=== PATIENT | female | born 1980 | race Caucasian/White ===

== ENCOUNTER 2017-06-16 15:14 | Emergency (ER) | payer MEDICAID, OTHER ==
[~2017-06-16] VITALS: Wt 74.0 kg
[~2017-06-16 15:14] MED LIST: CYCL-319 PO; IBUP-1542 PO; PREN1TAB49; PREN1TAB49 PO
[2017-06-16] MEDS ORDERED: KETOROLAC 30 MG INJ IM STA (17:31)
[2017-06-16 18:12] LABS: BASOPHILS % 0.1 % (0.0-2.0); EOSINOPHILS % 0.3 % (0.0-7.0); HEMOGLOBIN 12.9 g/dl (12.0-16.0); LYMPHOCYTES # 2.2 10^3/ul (0.8-2.9); LYMPHOCYTES % 22.6 % (15.0-51.0); MEAN CORPUSCULAR HEMOGLOBIN 28.7 pg (29.0-33.0); MEAN CORPUSCULAR HGB CONC 33.9 g/dl (32.0-37.0); MEAN CORPUSCULAR VOLUME 84.4 fl (82.0-101.0); MEAN PLATELET VOLUME 9.8 fl (7.4-10.4); MONOCYTE # 0.6 10^3/ul (0.3-0.9); MONOCYTES % 6.2 % (0.0-11.0); NEUTROPHIL # 6.9 10^3/ul (1.6-7.5); NEUTROPHILS % 70.3 % (39.0-77.0); PLATELET COUNT 214 10^3/UL (140-415); RED CELL DISTRIBUTION WIDTH 13.2 % (11.5-14.5); WHITE BLOOD COUNT 9.8 10^3/ul (4.8-10.8)
[2017-06-16 18:19] LABS: ADD UMIC YES; UR ASCORBIC ACID NEGATIVE (NEGATIVE); UR BILIRUBIN (Dip) NEGATIVE (NEGATIVE); UR BLOOD (Dip) 1+ mg/dL (NEGATIVE); UR CLARITY SLIGHTLY CLOUDY (CLEAR); UR COLOR YELLOW (YELLOW); UR GLUCOSE (Dip) NEGATIVE (NEGATIVE); UR KETONES (Dip) NEGATIVE (NEGATIVE); UR LEUKOCYTE ESTERASE (Dip) NEGATIVE Leu/ul (NEGATIVE); UR MUCUS FEW /HPF (NONE SEEN); UR NITRITE (Dip) NEGATIVE (NEGATIVE); UR RBC 1 /HPF (0-5); UR SPECIFIC GRAVITY (Dip) 1.021 (1.003-1.030); UR SQUAMOUS EPITHELIAL CELL FEW /HPF (FEW); UR TOTAL PROTEIN (Dip) NEGATIVE (NEGATIVE); UR UROBILINOGEN (Dip) NEGATIVE (NEGATIVE)
[2017-06-16 18:30] LABS: ALBUMIN 4.2 g/dl (3.3-4.9); ALBUMIN/GLOBULIN RATIO 1.4; BILIRUBIN,INDIRECT 0.1 mg/dl (0-1.1); BILIRUBIN,TOTAL 0.1 mg/dl (0.2-1.3); CALCIUM 9.3 mg/dl (8.4-10.2); CREATININE 0.92 mg/dl (0.44-1.00); POTASSIUM 4.4 mmol/L (3.5-5.1); TOTAL PROTEIN 7.2 g/dl (6.1-8.1)
[2017-06-16] MEDS ORDERED: ACETAMINOPHEN 325 MG TAB PO ONE (18:30)
--- NOTE | 2017-06-16 18:38 | RADRPT ---
PROCEDURE: US Pelvis. CLINICAL INDICATION: Pain TECHNIQUE: Multiple sonographic images of the pelvis were obtained utilizing a transabdominal and endovaginal technique. The images were reviewed on a PACS workstation. COMPARISON: None. FINDINGS: The uterus is normal in size and demonstrates a normal appearance of the myometrium. The endometria l stripe is heterogeneous in appearance and has the thickness of 19 mm. No intrauterine gestation is noted. The ovaries are not visualized. There is a small to moderate amount of free fluid in the pelvis. RPTAT: AA IMPRESSION: No intrauterine gestation visualized. Ovaries not visualized. Small to moderate amount of free fluid in the posterior cul-de-sac. Differential diagnosis includes early , missed or ectopic . Follow-up ultrasound and HCG levels is recommended. .Enrico Sullivan MD, Date Time Electronically viewed and signed by .Enrico Sullivan MD, on 06/16/2017 18:37 .S/
[2017-06-16] MEDS ORDERED: ACET325T33 PO (18:57)
[2017-06-16] MEDS ORDERED: PREN1COM PO (19:05)
--- NOTE | 2017-06-16 19:49 | ERD ---
ER Documentation Chief Complaint Date/Time DATE: 06/16/17 TIME: 19:44 Chief Complaint LOWER ABD PAIN SINCE YESTERDAY HPI Patient is a 36-year-old female presenting to the emergency department with complaints of bilateral suprapubic pain which is worse with urination which has been ongoing intermittently since yesterday. She does report a burning on urination. She has had urinary tract infections in the past. She states her last menstrual cycle was 05-15-2017. She states there is possibility that she is . Symptoms radiate to the back. She denies fevers, chills, vomiting , diarrhea, or other symptoms at this time. ROS All systems reviewed and are negative except as per history of present illness. Medications Home Meds Active Scripts Prenat Vit Comb.10/Iron/FA/Dha (Vitafol-Ob+Dha Combo Pack) 1 Each Combo..pkg, 1 EACH PO DAILY, #30 Prov:ANGELICA SOTOMAYOR PA-C 06/16/17 Acetaminophen* (Tylenol*) 325 Mg Tablet, 2 TAB PO Q6 Y for PAIN AND OR ELEVATED TEMP, #20 TAB Prov:ANGELICA SOTOMAYOR PA-C 06/16/17 Cyclobenzaprine Hcl* (Cyclobenzaprine Hcl*) 10 Mg Tablet, 10 MG PO TID, #30 TAB Prov:LISSETT REYNOLDS PA-C 07/19/16 Ibuprofen* (Motrin*) 600 Mg Tab, 600 MG PO Q6H Y for PAIN AND OR ELEVATED TEMP, #30 TAB Prov:LISSETT REYNOLDS PA-C 07/19/16 Reported Medications Vits W-Ca,Fe,Fa(<1MG) () 1 Tab Tablet, 1 01/21/12 Vits W-Ca,Fe,Fa(<1MG) () 1 Tab Tablet, 1 TAB PO DAILY 06/20/11 Allergies Allergies: Coded Allergies: No Known Drug Allergies (Verified Allergy, Mild, 01/21/12) PMhx/Soc History of Surgery: No Anesthesia Reaction: No Hx Neurological Disorder: No Hx Respiratory Disorders: No Hx Cardiac Disorders: No Hx Psychiatric Problems: No Hx Miscellaneous Medical Probl: No Hx Alcohol Use: No Hx Substance Use: No Hx Tobacco Use: No Physical Exam Vitals Vital Signs Date Time Temp Pulse Resp B/P Pulse Ox O2 Delivery O2 Flow Rate FiO2 06/16/17 15:16 98.0 84 18 144/96 99 Physical Exam Const: Nontoxic, well-appearing female in no acute distress. Head: Atraumatic Eyes: Normal Conjunctiva ENT: Normal External Ears, Nose and Mouth. Neck: Full range of motion..~ No meningismus. Resp: Clear to auscultation bilaterally Cardio: Regular rate and rhythm, no murmurs Abd: Soft, non tender, non distended. Normal bowel sounds. There is mild suprapubic tenderness palpation bilaterally. Skin: No petechiae or rashes Back: No midline or flank tenderness and no CVA tenderness noted. Ext: No cyanosis, or edema Neur: Awake and alert Psych: Normal Mood and Affect Result Diagram: 06/16/17175406/16/171754 Results 24 hrs Laboratory Tests Test 06/16/17 17:55 White Blood Count 9.810^3/ul Red Blood Count 4.5010^6/ul Hemoglobin 12.9g/dl Hematocrit 38.0% Mean Corpuscular Volume 84.4fl Mean Corpuscular Hemoglobin 28.7pg Mean Corpuscular Hemoglobin Concent 33.9g/dl Red Cell Distribution Width 13.2% Platelet Count 57636^3/UL Mean Platelet Volume 9.8fl Neutrophils % 70.3% Lymphocytes % 22.6% Monocytes % 6.2% Eosinophils % 0.3% Basophils % 0.1% Nucleated Red Blood Cells % 0.0/100WBC Neutrophils # 6.910^3/ul Lymphocytes # 2.210^3/ul Monocytes # 0.610^3/ul Eosinophils # 0.010^3/ul Basophils # 0.010^3/ul Nucleated Red Blood Cells # 0.010^3/ul Urine Color YELLOW Urine Clarity SLIGHTLY CLOUDY Urine pH 5.0 Urine Specific [place] 1.021 Urine Ketones NEGATIVEmg/dL Urine Nitrite NEGATIVEmg/dL Urine Bilirubin NEGATIVEmg/dL Urine Urobilinogen NEGATIVEmg/dL Urine Leukocyte Esterase NEGATIVELeu/ul Urine Microscopic RBC 1/HPF Urine Microscopic WBC 1/HPF Urine Squamous Epithelial Cells FEW/HPF Urine Mucus FEW/HPF Urine Hemoglobin 1+mg/dL Urine Glucose NEGATIVEmg/dL Urine Total Protein NEGATIVEmg/dl Sodium Level 136mmol/L Potassium Level 4.4mmol/L Chloride Level 102mmol/L Carbon Dioxide Level 25mmol/L Anion Gap 13 Blood Urea Nitrogen 17mg/dl Creatinine 0.92mg/dl Glucose Level 84mg/dl Calcium Level 9.3mg/dl Total Bilirubin 0.1mg/dl Direct Bilirubin 0.00mg/dl Indirect Bilirubin 0.1mg/dl Aspartate Amino Transf (AST/SGOT) 22IU/L Alanine Aminotransferase (ALT/SGPT) 30IU/L Alkaline Phosphatase 69IU/L Total Protein 7.2g/dl Albumin 4.2g/dl Globulin 3.00g/dl Albumin/Globulin Ratio 1.40 Beta HCG, Quantitative 313.9mIU/ml Current Medications Medications (Trade) Dose Ordered Sig/Angela Route PRN Reason Start Time Stop Time Status Last Admin Dose Admin Ketorolac Tromethamine (Toradol) 30 mg ONCE STAT IM 06/16/17 17:31 06/16/17 17:33 DC Acetaminophen (Tylenol Tab) 650 mg ONCE ONCE PO 06/16/17 18:30 06/16/17 18:31 DC 06/16/17 18:38 Procedures/MDM 36-year-old female presents to the emergency department for bilateral suprapubic pain. A UA and urine were ordered initially and urine positive, given her symptoms of suprapubic pain I ordered a workup to rule out obstetrical emergencies. CBC showed no signs of leukocytosis or anemia. Chemistry was negative for acute findings. Beta-hCG was 313, which put her outside the discriminatory zone for possible ectopic . Urinalysis is not concerning for proteinuria or signs of infection. P.o. Tylenol relieved her symptoms in the department. Given her very low beta hCG and no sign of intrauterine gestation, the patient is likely very early on in her . Since her pain did stabilize in the department and she was feeling comfortable to go home, she was discharged with instructions to follow- up closely with her [employer] physician and primary care physician. She was hemodynamically stable prior to discharge. I have low suspicion for ectopic , placenta previa, placenta abruptio, sepsis, acute abdomen, or other emergent conditions. The patient agreed with the discharge plan a diagnosis and her questions and concerns were addressed. She was given copies of her laboratory and imaging results. Must return immediately for any new or worsening symptoms. PROCEDURE: US Pelvis. CLINICAL INDICATION: Pain TECHNIQUE: Multiple sonographic images of the pelvis were obtained utilizing a transabdominal and endovaginal technique. The images were reviewed on a PACS workstation. COMPARISON: None. FINDINGS: The uterus is normal in size and demonstrates a normal appearance of the myometrium. The endometrial stripe is heterogeneous in appearance and has the thickness of 19 mm. No intrauterine gestation is noted. The ovaries are not visualized. There is a small to moderate amount of free fluid in the pelvis. RPTAT: AA IMPRESSION: No intrauterine gestation visualized. Ovaries not visualized. Small to moderate amount of free fluid in the posterior cul-de-sac. Differential diagnosis includes early , missed or ectopic . Follow-up ultrasound and HCG levels is recommended. .Enrico Sullivan MD, MD Date Time Electronically viewed and signed by .Enrico Sullivan MD, MD on 06/16/2017 18: 37 Departure Diagnosis: Primary Impression: Pelvic pain affecting in first trimester, antepartum Condition: Fair Patient Instructions: Pelvic Pain In : Unclear (2-3 Trimester) Additional Instructions: No mas mejor en 2-3 liang, regresar. Mas peor en 24 horas, regresear rapidamente. Ir a doctor primario in 5-7 liang. Usar instrucciones cuando lanie medicamento. ANGELICA SOTOMAYOR PA-C Jun 16, 2017 19:49
== END 2017-06-16 19:09 | disposition home or self-care (01) ==
LOC: FTE 15:14
DX: O26.891 Other specified pregnancy related conditions, first trimester (principal); R10.2 Pelvic and perineal pain
CPT/HCPCS: 76801; 76817; 80053; 81001; 84702; 85025; 86900; 86901; 87086; Z7502; Z7610

== ENCOUNTER 2017-06-21 22:22 | Emergency (ER) | payer MEDICAID ==
[~2017-06-21] VITALS: Ht 160 cm; Wt 74.5 kg
[~2017-06-21 22:22] MED LIST changes: +ACET325T33 PO; +PREN1COM PO
[2017-06-21 22:25] VITALS: Ht 160 cm; Wt 74.5 kg
[2017-06-22] MEDS ORDERED: ACETAMINOPHEN 325 MG TAB PO STA (00:17)
--- NOTE | 2017-06-22 00:17 | ERD ---
ER Documentation Chief Complaint Date/Time DATE: 06/22/17 TIME: 00:15 Chief Complaint vag bleed and pain on urination; does not wear pads HPI This 36-year-old , 5 week female with pelvic pain and small amount of bleeding with void. Patient reports that she is wearing a foster-pad has saturated a pad about every 3 hours, denies clots, denies back pain but denies nausea or vomiting. ROS All systems reviewed and are negative except as per history of present illness. Medications Home Meds Active Scripts Prenat Vit Comb.10/Iron/FA/Dha (Vitafol-Ob+Dha Combo Pack) 1 Each Combo..pkg, 1 EACH PO DAILY, #30 Prov:ANGELICA SOTOMAYOR PA-C 06/16/17 Acetaminophen* (Tylenol*) 325 Mg Tablet, 2 TAB PO Q6 Y for PAIN AND OR ELEVATED TEMP, #20 TAB Prov:ANGELICA SOTOMAYOR PA-C 06/16/17 Cyclobenzaprine Hcl* (Cyclobenzaprine Hcl*) 10 Mg Tablet, 10 MG PO TID, #30 TAB Prov:LISSETT REYNOLDS PA-C 07/19/16 Ibuprofen* (Motrin*) 600 Mg Tab, 600 MG PO Q6H Y for PAIN AND OR ELEVATED TEMP, #30 TAB Prov:LISSETT REYNOLDS PA-C 07/19/16 Reported Medications Vits W-Ca,Fe,Fa(<1MG) () 1 Tab Tablet, 1 01/21/12 Vits W-Ca,Fe,Fa(<1MG) () 1 Tab Tablet, 1 TAB PO DAILY 06/20/11 Allergies Allergies: Coded Allergies: No Known Drug Allergies (Verified Allergy, Mild, 01/21/12) PMhx/Soc Medical and Surgical Hx: pt denies Medical Hx, pt denies Surgical Hx History of Surgery: No Anesthesia Reaction: No Hx Neurological Disorder: No Hx Respiratory Disorders: No Hx Cardiac Disorders: No Hx Psychiatric Problems: No Hx Miscellaneous Medical Probl: No Hx Alcohol Use: No Hx Substance Use: No Hx Tobacco Use: No Smoking Status: Never smoker Physical Exam Vitals Vital Signs Date Time Temp Pulse Resp B/P Pulse Ox O2 Delivery O2 Flow Rate FiO2 06/21/17 22:25 81 20 141/71 100 Vitals stable, triage notes reviewed Physical Exam Const: Well-nourished, well-appearing, well-hydrated 36-year-old female obvious discomfort no acute distress Head: Eyes: Normal Conjunctiva PERRLA, EOMI ENT: Normal External Ears, Nose and Mouth. Neck: Resp: Clear to auscultation bilaterally no rales wheezes or rhonchi Cardio: S1-S2, no S3-S4 regular rate and rhythm, no murmurs Abd: Soft, pelvic tenderness, no CVA tenderness Skin: Back: No midline or flank tenderness Ext: Neur: Awake and alert Psych: Normal Mood and Affect Result Diagram: 06/22/17 0015 Results 24 hrs Laboratory Tests Test 06/22/17 00:15 06/22/17 00:33 White Blood Count 7.510^3/ul Red Blood Count 4.0810^6/ul Hemoglobin 11.8g/dl Hematocrit 34.0% Mean Corpuscular Volume 83.3fl Mean Corpuscular Hemoglobin 28.9pg Mean Corpuscular Hemoglobin Concent 34.7g/dl Red Cell Distribution Width 13.4% Platelet Count 72486^3/UL Mean Platelet Volume 10.0fl Neutrophils % 63.6% Lymphocytes % 26.4% Monocytes % 8.9% Eosinophils % 0.5% Basophils % 0.3% Nucleated Red Blood Cells % 0.0/100WBC Neutrophils # 4.810^3/ul Lymphocytes # 2.010^3/ul Monocytes # 0.710^3/ul Eosinophils # 0.010^3/ul Basophils # 0.010^3/ul Nucleated Red Blood Cells # 0.010^3/ul Beta HCG, Quantitative 858.3mIU/ml Urine Color YELLOW Urine Clarity SLIGHTLY CLOUDY Urine pH 5.0 Urine Specific [place] 1.024 Urine Ketones NEGATIVEmg/dL Urine Nitrite NEGATIVEmg/dL Urine Bilirubin NEGATIVEmg/dL Urine Urobilinogen NEGATIVEmg/dL Urine Leukocyte Esterase NEGATIVELeu/ul Urine Microscopic RBC 10/HPF Urine Microscopic WBC 2/HPF Urine Squamous Epithelial Cells FEW/HPF Urine Hemoglobin 2+mg/dL Urine Glucose NEGATIVEmg/dL Urine Total Protein NEGATIVEmg/dl Current Medications Medications (Trade) Dose Ordered Sig/Angela Route PRN Reason Start Time Stop Time Status Last Admin Dose Admin Acetaminophen (Tylenol Tab) 650 mg ONCE STAT PO 06/22/17 00:17 06/22/17 00:19 DC 06/22/17 00:29 Interpretation text CBC shows no evidence of hemorrhage or infection Beta hCG quantitative 858.3mIU/ml Urine analysis negative for evidence of infection no leukocytosis, or nitrates. Procedures/MDM PROCEDURE: US OB. CLINICAL INDICATION: Vaginal bleeding , pain. Clinical estimate gestational age is 5 weeks 3 days with estimated date of delivery 02/19/2018 TECHNIQUE: Transabdominal and transvaginal views of the pelvis are available for review. COMPARISON: 06/16/2017 FINDINGS: No intrauterine is seen. There is a small fluid collection in the endometrium in the fundus with mean diameter equals 0.29 cm. If this represents a gestational sac this corresponds to 4 weeks 6 days gestational age with estimated date of delivery 02/23/2018. No yolk sac or pole is seen in the fluid collection which could be secondary to early gestational age. Nabothian cysts in the cervix. The right ovary is unremarkable measures 3.6 x 1.8 x 2.5 cm. Color flow and duplex Doppler ultrasound demonstrates normal arterial and venous flow in the right ovary. The left ovary is not seen. No adnexal mass is seen. Small amount of free fluid is seen in the right adnexal region and cul-de- sac. IMPRESSION: No intrauterine is seen. There is a small fluid collection in the endometrium in the fundus with mean diameter equals 0.29 cm. If this represents a gestational sac this corresponds to 4 weeks 6 days gestational age. No yolk sac or pole is seen in the fluid collection which could be secondary to early gestational age. No ectopic is seen. Differential diagnosis includes early intrauterine , spontaneous and ectopic . Correlation with serial quantitative beta HCGs and follow-up ultrasound is recommended. Small amount of free fluid in cul-de-sac. Electronically viewed and signed by .Zackery Byrnes MD, MD on 06/22/2017 01:49 This 36-year-old female presents to emergency department today for evaluation of abdominal pain and vaginal bleeding, patient is 5 weeks using peripads and saturating every 8 hours. Patient denies back pain, nausea, or vomiting. Patient denies passing clots, pain is controllable with Tylenol. Emergency room course includes laboratory testing with hemoglobin decreased positive for anemia, WBCs without evidence of infection, beta hCG quantitative 858.3mIU/ml analysis negative for leukocytosis, traits suggestive of infection, OB ultrasound: As read by radiologist impression no intrauterine seen. There is small fluid collection in the endometrium in the fundus with a mean diameter equaling 0.29 cm. If this represents a gestational sacs this corresponds with 4 weeks 6 days gestational age no yolk sac or pole is seen in fluid collection which could be secondary to early gestational age. No ectopic is seen. Torrential diagnosis includes early intrauterine , spontaneous , and ectopic correlation with serial quantitative beta hCGs and follow-up ultrasound recommended. No free fluid seen in cul-de-sac. Plan to discharge patient home with [place], return to emergency department in 48 hours for repeat testing as outlined above, return to emergency room sooner for increased pain, vaginal bleeding bleeding Patient is stable with no new complaints during ER course, clinically there is no current evidence to suggest Vitas, urinary tract infection or any other emergent condition appearing to require further evaluation or hospitalization. I feel the patient is stable for discharge at this time. I have discussed results, examination findings, the treatment plan with the patient and family present prior to discharge. Indications for emergent reevaluation, side effects of medication were also discussed. All questions were answered. Patient verbalizes understanding and agrees with plan of care. Departure Diagnosis: Primary Impression: Vaginal bleeding in patient at less than 20 weeks gestation Condition: Good Patient Instructions: Bleeding During Early Additional Instructions: Thank you for for coming to [facility] for your care today. Please ask your nurse or provider if you have questions about your care today and do not leave until all your questions have been answered. Please use any medications given as directed and follow-up with your doctor (or the doctor you were referred to) in the next 2-3 days. If you do not have a primary care doctor you may follow up at the [facility] (listed below). You may also use motrin and tylenol as needed for fever and/or pain unless instructed otherwise by your provider or nurse. Indications for more urgent follow-up have been discussed, but you may return to the Emergency Department at ANY time for any worrisome or worsening symptoms. If you have abdominal pain, please know that no test or exam you received is perfect and you should follow up within 8 hours for continued pain. If you had any imaging studies today, such as an X-Ray or CT Scan, these studies will be reviewed later by a radiologist. You will be called if there are important findings that were not identified today, so make sure the contact information you provided at registration is correct. If you received any narcotic pain control medicine today, such as Vicodin, Morphine or Dilaudid, your coordination and judgment may be affected for a number of hours. Please do not drive or operate heavy machinery, and you may want someone to assist you at home. If you were given a prescription for narcotic medication, be aware that it is very addictive- use sparingly and only if necessary. SMITA ROCK Jun 22, 2017 00:17
[2017-06-22 00:33] LABS: BASOPHILS % 0.3 % (0.0-2.0); EOSINOPHILS % 0.5 % (0.0-7.0); HEMOGLOBIN 11.8 g/dl (12.0-16.0); LYMPHOCYTES % 26.4 % (15.0-51.0); MEAN CORPUSCULAR HEMOGLOBIN 28.9 pg (29.0-33.0); MEAN CORPUSCULAR HGB CONC 34.7 g/dl (32.0-37.0); MEAN CORPUSCULAR VOLUME 83.3 fl (82.0-101.0); MONOCYTE # 0.7 10^3/ul (0.3-0.9); MONOCYTES % 8.9 % (0.0-11.0); NEUTROPHIL # 4.8 10^3/ul (1.6-7.5); NEUTROPHILS % 63.6 % (39.0-77.0); PLATELET COUNT 194 10^3/UL (140-415); RED BLOOD COUNT 4.08 10^6/ul (4.20-5.40); RED CELL DISTRIBUTION WIDTH 13.4 % (11.5-14.5); WHITE BLOOD COUNT 7.5 10^3/ul (4.8-10.8)
[2017-06-22 00:55] LABS: ADD UMIC YES; UR ASCORBIC ACID 40 mg/dL (NEGATIVE); UR BILIRUBIN (Dip) NEGATIVE (NEGATIVE); UR BLOOD (Dip) 2+ mg/dL (NEGATIVE); UR CLARITY SLIGHTLY CLOUDY (CLEAR); UR COLOR YELLOW (YELLOW); UR GLUCOSE (Dip) NEGATIVE (NEGATIVE); UR KETONES (Dip) NEGATIVE (NEGATIVE); UR LEUKOCYTE ESTERASE (Dip) NEGATIVE Leu/ul (NEGATIVE); UR NITRITE (Dip) NEGATIVE (NEGATIVE); UR RBC 10 /HPF (0-5); UR SPECIFIC GRAVITY (Dip) 1.024 (1.003-1.030); UR SQUAMOUS EPITHELIAL CELL FEW /HPF (FEW); UR TOTAL PROTEIN (Dip) NEGATIVE (NEGATIVE); UR UROBILINOGEN (Dip) NEGATIVE (NEGATIVE)
--- NOTE | 2017-06-22 01:49 | RADRPT ---
PROCEDURE: US OB. CLINICAL INDICATION: Vaginal bleeding , pain. Clinical estimate gestational age is 5 weeks 3 days with estimated date of delivery 02/19/2018 TECHNIQUE: Transabdominal and transvaginal views of the pelvis are available for review. COMPARISON: 06/16/2017 FINDINGS: No intrauterine is seen. There is a small fluid collection in the endometrium in the fundu s with mean diameter equals 0.29 cm. If this represents a gestational sac this corresponds to 4 week s 6 days gestational age with estimated date of delivery 02/23/2018. No yolk sac or pole is se en in the fluid collection which could be secondary to early gestational age. Nabothian cysts in the cervix. The right ovary is unremarkable measures 3.6 x 1.8 x 2.5 cm. Color flow and duplex Doppler ultrasound demonstrates normal arterial and venous flow in the right ovary. The left ovary is not se en. No adnexal mass is seen. Small amount of free fluid is seen in the right adnexal region and cul- de-sac. IMPRESSION: No intrauterine is seen. There is a small fluid collection in the endometrium in the fundu s with mean diameter equals 0.29 cm. If this represents a gestational sac this corresponds to 4 week s 6 days gestational age. No yolk sac or pole is seen in the fluid collection which could be s econdary to early gestational age. No ectopic is seen. Differential diagnosis includes ear ly intrauterine , spontaneous and ectopic . Correlation with serial quant itative beta HCGs and follow-up ultrasound is recommended. Small amount of free fluid in cul-de-sac. RPTAT: HJES .Zackery Byrnes MD, Date Time Electronically viewed and signed by .Zackery Byrnes MD, on 06/22/2017 01:49 .S/
[2017-06-22] MEDS ORDERED: HYDR-906 PO (03:21)
== END 2017-06-22 03:33 | disposition home or self-care (01) ==
LOC: FTE 22:22
DX: O20.9 Hemorrhage in early pregnancy, unspecified (principal); Z3A.01 Less than 8 weeks gestation of pregnancy
CPT/HCPCS: 76801; 76817; 81001; 84702; 85025; Z7502; Z7610

== ENCOUNTER 2017-07-25 18:38 | Emergency (ER) | payer MEDICAID, OTHER ==
[~2017-07-25] VITALS: Ht 162.6 cm; Wt 72.6 kg
[~2017-07-25 18:38] MED LIST changes: +HYDR-906 PO
[2017-07-25 18:43] VITALS: Ht 162.6 cm; Wt 72.6 kg
--- NOTE | 2017-07-25 20:20 | RADRPT ---
AMENDMENT: 07/26/2017 2:59:34 PM Marci Gonzalez M.d Findings were discussed with Dr. Finch with the OB Gyne service by Dr. Marci Gonzalez on July 26 at 02:50 p.m. She agrees that the patient should be called back for repeat evaluation and repeat ultrasound with the sliding test this afternoon or evening. AMENDMENT: 07/26/2017 2:46:11 PM Marci Gonzalez M.d The 2.8 cm heterogeneous avascular mass in the right adnexa is favored to represent a tubal ectopic although an exophytic hemorrhagic corpus luteum cannot be absolutely excluded. Repeat ultr asound with the sliding test is recommended. Alternatively, differentiation of an ectopic from a corpus luteum could be made with MRI. The ectopic may have accounting for the essentially negative beta HCG. Short interval follow-up is recommended in 24-48 hours. This addendum was discussed with Dr Garcia in the ER by Dr. Marci Gonzalez July 26, 2017 at 02:3 5 p.m. A call was also placed to the OB Gyne provider, Dr. Linda Finch. However, she could not be r eached at this time. PROCEDURE: FIRST TRIMESTER OBSTETRICAL ULTRASOUND: CLINICAL INDICATION: 36 years of age, female. Vaginal bleeding and right lower quadrant pain . TECHNIQUE: Real-time sonographic images of the pelvis were obtained transabdominally and transvagina lly utilizing fuentes scale, color, and Doppler imaging. COMPARISON: Pelvic ultrasound June 22, 2017 FINDINGS: LMP May 15, 2017 EGA by dates: 10 weeks 1 day BOB by dates: February 19, 2018 Beta HCG < 2.4 (negative) (was 858 June 22, 2017) Uterus: Anteverted . Myometrium is normal. Gestational sac: Not visualized Endometrium: 0.8 cm without hyperemia. Cervix: Closed. Right ovary: Size: 3.2 x 1.8 x 2.5 cm. (Vol 7.5 mL) Appearance: Right ovary is normal morphology and demonstrates normal arterial flow. There is a 2.8 x 2.8 cm heterogeneous mass in the right adnexa adjacent to the ovary without internal color flow vince t was likely present on prior exam. Left ovary: Size: 3.3 x 1.4 x 2.1 cm. (Vol 4.9 mL) Appearance: Normal morphology. No masses. There is a 1.2 cm paraovarian cyst. Arterial flow is pres ent. Other: No significant free pelvic fluid. IMPRESSION: 1. Negative for an intrauterine . 2. 2.8 cm heterogeneous mass in the right adnexa adjacent to the right ovary without internal colo r flow was likely also present on prior exam. Differential diagnosis includes, but is not limited to , a tubal ectopic or an exophytic hemorrhagic corpus luteum cyst. Gynecology consultation is advised. The patient's beta HCG is negative. If one opts for medical or conservative therapy, fol low-up ultrasound in 4-6 weeks is recommended to evaluate for resolution. Findings were discussed with provider, Tali Bradshaw by Dr. Marci Gonzalez on July 25, 2017 at 08: 10 p.m.. RPTAT: HCTS Physician Maliha Date Time Electronically viewed and signed by Jamir Gonzalez Physician on 07/26/2017 15:00 CS/
[2017-07-25] MEDS ORDERED: IBUP-1542 PO (21:27)
--- NOTE | 2017-07-25 21:43 | ERD ---
ER Documentation Chief Complaint Chief Complaint 10 wks , vag bleeding lmp 05/15/17 HPI This is a 36-year-old female that presents to the ER for vaginal bleeding. Patient states that her last normal menstrual period was on May 15, 2017. Patient was seen in the ER on June 21, 2017 secondary to vaginal bleeding, at this time her quantitative hCG was 858. Patient states that she bled for 5 days, and then bleeding resolved. Patient began to bleed again 2 days ago and states that bleeding is heavy. She is also complaining of right sided lower pelvic pain, which she has had for months, she states it is worse whenever she gets her menstrual period. A0. Denies any urinary frequency or dysuria. She denies any flank pain. She denies any fevers or chills. This has been different from her other pregnancies, as she has not had any symptoms such as nausea, vomiting, cravings or breast tenderness. ROS 12 point review of systems was done, all negative except per HPI. Medications Home Meds Active Scripts Ibuprofen* (Motrin*) 600 Mg Tab, 600 MG PO Q6, #30 TAB Prov:TALI SALVADOR 07/25/17 Hydrocodone/Acetaminophen ([place] 5-325 Tablet) 1 Each Tablet, 1 TAB PO Q6H Y for PAIN, #7 TAB Prov:SMITA ROCK 06/22/17 Prenat Vit Comb.10/Iron/FA/Dha (Vitafol-Ob+Dha Combo Pack) 1 Each Combo..pkg, 1 EACH PO DAILY, #30 Prov:ANGELICA SOTOMAYOR PA-C 06/16/17 Acetaminophen* (Tylenol*) 325 Mg Tablet, 2 TAB PO Q6 Y for PAIN AND OR ELEVATED TEMP, #20 TAB Prov:ANGELICA SOTOMAYOR PA-C 06/16/17 Cyclobenzaprine Hcl* (Cyclobenzaprine Hcl*) 10 Mg Tablet, 10 MG PO TID, #30 TAB Prov:LISSETT REYNOLDS PA-C 07/19/16 Ibuprofen* (Motrin*) 600 Mg Tab, 600 MG PO Q6H Y for PAIN AND OR ELEVATED TEMP, #30 TAB Prov:LISSETT REYNOLDS PA-C 07/19/16 Reported Medications Vits W-Ca,Fe,Fa(<1MG) () 1 Tab Tablet, 1 01/21/12 Vits W-Ca,Fe,Fa(<1MG) () 1 Tab Tablet, 1 TAB PO DAILY 06/20/11 Allergies Allergies: Coded Allergies: No Known Drug Allergies (Verified Allergy, Mild, 07/25/17) PMhx/Soc History of Surgery: No Anesthesia Reaction: No Hx Neurological Disorder: No Hx Respiratory Disorders: No Hx Cardiac Disorders: No Hx Psychiatric Problems: No Hx Miscellaneous Medical Probl: No Hx Alcohol Use: No Hx Substance Use: No Hx Tobacco Use: No Physical Exam Vitals Vital Signs Date Time Temp Pulse Resp B/P Pulse Ox O2 Delivery O2 Flow Rate FiO2 07/25/17 18:43 98.2 75 20 138/89 100 Physical Exam GENERAL: The patient is well developed and appropriate for usual state of health , in no apparent distress. HEENT: Atraumatic CHEST: Clear to auscultation bilaterally. There are no rales, wheezes or rhonchi. HEART: Regular rate and rhythm. No murmurs, clicks, rubs or gallops. ABDOMEN: Soft, nontender and nondistended. Good bowel sounds. No rebound or guarding. No gross peritonitis. No gross organomegaly or masses. No Freeman sign or McBurney point tenderness. Due to palpation in the right pelvic area. BACK: No midline or flank tenderness. NEURO: Alert and oriented. SKIN: There is no apparent rash or petechia. The skin is warm and dry. Result Diagram: 07/25/171918 Results 24 hrs Laboratory Tests Test 07/25/17 19:19 White Blood Count 6.110^3/ul Red Blood Count 4.6710^6/ul Hemoglobin 13.5g/dl Hematocrit 38.8% Mean Corpuscular Volume 83.1fl Mean Corpuscular Hemoglobin 28.9pg Mean Corpuscular Hemoglobin Concent 34.8g/dl Red Cell Distribution Width 13.0% Platelet Count 89668^3/UL Mean Platelet Volume 10.0fl Neutrophils % 59.4% Lymphocytes % 29.4% Monocytes % 9.7% Eosinophils % 1.1% Basophils % 0.2% Nucleated Red Blood Cells % 0.0/100WBC Neutrophils # 3.610^3/ul Lymphocytes # 1.810^3/ul Monocytes # 0.610^3/ul Eosinophils # 0.110^3/ul Basophils # 0.010^3/ul Nucleated Red Blood Cells # 0.010^3/ul Beta HCG, Quantitative < 2.4mIU/ml [place] [id number] Radiology Main Line: [phone] DIAGNOSTIC IMAGING REPORT Patient: ITZEL MARINA : 1980 Age: 36 Sex: F MR #: [id number] DOS: 07/25/17 1907 Ordering MD: TALI SALVADOR PA-C Location: [facility] Room/Bed: PROCEDURE: FIRST TRIMESTER OBSTETRICAL ULTRASOUND: CLINICAL INDICATION: 36 years of age, female. Vaginal bleeding and right lower quadrant pain . TECHNIQUE: Real-time sonographic images of the pelvis were obtained transabdominally and transvaginally utilizing fuentes scale, color, and Doppler imaging. COMPARISON: Pelvic ultrasound June 22, 2017 FINDINGS: LMP May 15, 2017 EGA by dates: 10 weeks 1 day BOB by dates: February 19, 2018 Beta HCG < 2.4 (negative) (was 858 June 22, 2017) Uterus: Anteverted . Myometrium is normal. Gestational sac: Not visualized Endometrium: 0.8 cm without hyperemia. Cervix: Closed. Right ovary: Size: 3.2 x 1.8 x 2.5 cm. (Vol 7.5 mL) Appearance: Right ovary is normal morphology and demonstrates normal arterial flow. There is a 2.8 x 2.8 cm heterogeneous mass in the right adnexa adjacent to the ovary without internal color flow that was likely present on prior exam. Left ovary: Size: 3.3 x 1.4 x 2.1 cm. (Vol 4.9 mL) Appearance: Normal morphology. No masses. There is a 1.2 cm paraovarian cyst. Arterial flow is present. Other: No significant free pelvic fluid. IMPRESSION: 1. Negative for an intrauterine . 2. 2.8 cm heterogeneous mass in the right adnexa adjacent to the right ovary without internal color flow was likely also present on prior exam. Differential diagnosis includes, but is not limited to, a tubal ectopic or an exophytic hemorrhagic corpus luteum cyst. Gynecology consultation is advised. The patient's beta HCG is negative. If one opts for medical or conservative therapy, follow-up ultrasound in 4-6 weeks is recommended to evaluate for resolution. Findings were discussed with provider, Tali Salvador by Dr. Marci Gonzalez on July 25, 2017 at 08:10 p.m.. RPTAT: HCTS Jamir Gonzalez Physician Date Time Electronically viewed and signed by Jamir Gonzalez, Physician on 07/25/2017 21: 10 CS/ CC: TALI SALVADOR Procedures/MDM Differential diagnosis: Threatened , missed , incomplete , ectopic , molar , UTI, pyelonephritis. This is a 36 -year-old female presents to the ER with vaginal bleeding. Ultrasound was taken , and concern for ectopic was brought up however patient's quantitative hCG is less than 2.4 and she has a negative urine test. There was no evidence of intrauterine on ultrasound. She was taken for further ultrasound testing, and after retesting final impression of ultrasound was that there was no intrauterine , and a mass in the right ovary measuring about 2 cm. I discussed this case with labor quality control industrial engineer Dr. Finch, patient's quantitative hCG is negative for and there is no evidence of intrauterine at this time. Suspicion for ectopic is low. My suspicion is that patient was in late May, and missed the .Patient bled for 5 days and bleeding resolved, this was likely a miscarriage. Bleeding which started two days ago is likely her regular menstrual cycle. It is difficult to confirm this as she did not have any followup care, ULTZ, quantitative hCG in between. She is likely presenting with right lower pelvic pain secondary to mass that was found. Suspicion for ovarian torsion is low. Per Dr. Finch patient is stable for outpatient follow-up. She is to follow-up with her primary care doctor within 1 -2 days or return to ER sooner if symptoms worsen. My medical decision making shared with the patient she understands and agrees with plan. Departure Diagnosis: Primary Impression: Vaginal bleeding Condition: Stable Patient Instructions: Missed Miscarriage Referrals: ISAURO ESPINO MD (PCP) Additional Instructions: Llame al doctor MAANA y ania amber MIKE PARA DENTRO DE 1-2 ZAZUETA.Dgale a la secretaria que nosotros le instruimos hacer esta mike.Avise o llame si driscoll condicin se empeora antes de la mike. Regresa aqui si peor o no mejor. TALI SALVADOR Jul 25, 2017 21:43
--- NOTE | 2017-07-26 14:02 | EN ---
Date/Time of Note Date/Time of Note DATE: 07/26/17 TIME: 14:01 ER Progress Note I received a phone call from the radiologist regarding this patient's ultrasound imaging. They are concerned that this may be a tubular, ectopic despite negative hCG. She is asking for contact information for the labor asked to consult on the case, Dr. Finch. The patient's information was given to the charge nurse to call the patient to return emergently to the ER for reevaluation. REX DURANT MD Jul 26, 2017 14:02
== END 2017-07-25 21:40 | disposition home or self-care (01) ==
LOC: FTE 18:38
DX: O20.9 Hemorrhage in early pregnancy, unspecified (principal); R10.2 Pelvic and perineal pain; Z3A.10 10 weeks gestation of pregnancy
CPT/HCPCS: 36415; 76801; 76817; 84702; 85025; 86900; 86901; Z7502

== ENCOUNTER 2017-07-26 16:45 | Inpatient (IN) | payer OTHER ==
[~2017-07-26] VITALS: Ht 162.6 cm; Wt 71.8 kg
[2017-07-26] MEDS ORDERED: SOD CHLORIDE 0.9% 1,000 ML IV ONE (20:00)
--- NOTE | 2017-07-26 20:56 | RADRPT ---
PROCEDURE: OB Ultrasound. CLINICAL INDICATION: Positive test. Vaginal bleeding. TECHNIQUE: Ultrasound of the pelvis was performed with transabdominal and transvaginal sonography in the axial and sagittal planes. COMPARISON: Pelvic ultrasound dated 07/25/2017. FINDINGS: There is no intrauterine gestational sac. The uterus measures 10.0 x 4.7 x 6.5 cm. There is no uteri ne mass. Endometrial thickness is 8.5 mm. The right ovary measures 3.0 x 2.0 x 2.7 cm. There is a mass which is probably arising from the righ t ovary measuring 2.8 x 2.3 x 2.5 cm. The mass remains associated with the ovary during application of pressure and release of pressure (sliding test). The left ovary appears normal measuring 3.2 x 1.3 x 2.2 cm. Color Doppler and pulsed Doppler sonography demonstrate normal flow to the ovaries. There is no other pelvic mass or free fluid. IMPRESSION: 1. No intrauterine gestational sac. If the patient has a positive test, ectopic gestation cannot be excluded. 2. Mass probably arising from the right ovary measuring 2.8 x 2.3 x 2.5 cm. This appears similar to the prior study dated 07/25/2017. Follow-up ultrasound advised. 3. Otherwise unremarkable study. RPTAT: QQ .Jomar Rich MD, Date Time Electronically viewed and signed by .Jomar Rich MD, on 07/26/2017 20:55 .R/
--- NOTE | 2017-07-26 21:51 | ERD ---
ER Documentation Chief Complaint Chief Complaint Rule out ectopic HPI The patient is a 36-year-old female who presents to the Emergency Department for evaluation of vaginal bleeding, and to rule out ectopic . The patient reports that her last menstrual period was 05/15/2017. She was then seen in the Emergency Department on 06/21/2017 secondary to vaginal bleeding in , at which time her beta hCG quantitative was 858. The patient notes that approximately 3 days ago she be began to experience heavy vaginal bleeding. She notes that she is using approximately 6 pads per day due to the heavy bleeding. The patient also notes associated right pelvic pain, which she states that she has been experiencing intermittently for some time. She denies any urinary frequency, urgency, dysuria, flank pain. Denies fevers, sweats, chills, nausea or vomiting. Denies back pain, headache, dizziness, weakness or denies any vaginal discharge. The patient was evaluated in the Emergency Department yesterday, at which time patient's beta hCG quantitative was noted to be less than 2.4. Ultrasound imaging was performed, which revealed a 2.8 cm heterogeneous mass in the right adnexa adjacent to the right ovary without internal color flow. There was concern regarding possible tubal ectopic , and therefore DIRECT OF REAL ESTATE was consulted, who recommended discharge home with outpatient. This morning, ED attending received a phone call from radiologist, concerned about patient's imaging findings for a tubular ectopic , despite negative hCG. The patient was then called to return to the ED for further evaluation, prompting the visit today. Patient is . ROS All systems reviewed and are negative except as per history of present illness. Medications Home Meds Active Scripts Ibuprofen* (Motrin*) 600 Mg Tab, 600 MG PO Q6, #30 TAB Prov:GRAZYNA SALVADOR 07/25/17 Hydrocodone/Acetaminophen ([place] 5-325 Tablet) 1 Each Tablet, 1 TAB PO Q6H Y for PAIN, #7 TAB Prov:PRANAVSMITA 06/22/17 Prenat Vit Comb.10/Iron/FA/Dha (Vitafol-Ob+Dha Combo Pack) 1 Each Combo..pkg, 1 EACH PO DAILY, #30 Prov:ANGELICA SOTOMAYOR PA-C 06/16/17 Acetaminophen* (Tylenol*) 325 Mg Tablet, 2 TAB PO Q6 Y for PAIN AND OR ELEVATED TEMP, #20 TAB Prov:ANGELICA SOTOMAYOR Quan DAVISON 06/16/17 Cyclobenzaprine Hcl* (Cyclobenzaprine Hcl*) 10 Mg Tablet, 10 MG PO TID, #30 TAB Prov:LISSETT REYNOLDS PA-C 07/19/16 Ibuprofen* (Motrin*) 600 Mg Tab, 600 MG PO Q6H Y for PAIN AND OR ELEVATED TEMP, #30 TAB Prov:LISSETT REYNOLDS PA-C 07/19/16 Reported Medications Vits W-Ca,Fe,Fa(<1MG) () 1 Tab Tablet, 1 01/21/12 Vits W-Ca,Fe,Fa(<1MG) () 1 Tab Tablet, 1 TAB PO DAILY 06/20/11 Allergies Allergies: Coded Allergies: No Known Drug Allergies (Verified Allergy, Mild, 07/25/17) PMhx/Soc Medical and Surgical Hx: pt denies Medical Hx, pt denies Surgical Hx History of Surgery: No Anesthesia Reaction: No Hx Neurological Disorder: No Hx Respiratory Disorders: No Hx Cardiac Disorders: No Hx Psychiatric Problems: No Hx Miscellaneous Medical Probl: No Hx Alcohol Use: No Hx Substance Use: No Hx Tobacco Use: No Smoking Status: Never smoker Physical Exam Vitals Vital Signs Date Time Temp Pulse Resp B/P Pulse Ox O2 Delivery O2 Flow Rate FiO2 07/26/17 16:52 99.4 74 20 137/8 99 Physical Exam GENERAL: Well-developed, well-nourished, female, in no acute distress. Nontoxic. HEENT: Head is normocephalic, atraumatic. No scleral pallor or icterus. Conjunctiva pink. Moist mucous membranes. NECK: Supple. RESPIRATORY: Lungs are clear to auscultation bilaterally. Equal breath sounds. Normal expiratory effort. CARDIOVASCULAR: Regular rate and rhythm. S1 and S2 normal. Distal pulses are palpable, 2+ bilaterally. Capillary refill is less than 2 seconds. GASTROINTESTINAL: Abdomen is soft and non-distended. Tenderness to palpation over right pelvic region. No guarding, no rebound tenderness. Normal bowel sounds. No gross peritonitis. GENITOURINARY: Performed by DIRECT OF REAL ESTATE at bedside. FLANK: No CVA tenderness. BACK: No midline tenderness. EXTREMITIES: No clubbing, cyanosis, or edema. Normal skin perfusion. Moving all extremities. Muscle tone is normal. No focal swelling or erythema. NEUROLOGIC: The patient is alert, awake, and oriented x 3. No focal neurologic deficits. INTEGUMENT: Skin is intact. Warm and dry. PSYCHIATRIC: Cooperative. Result Diagram: 07/26/17199907/26/171999 Results 24 hrs Laboratory Tests Test 07/26/17 20:00 07/26/17 20:05 White Blood Count 6.510^3/ul Red Blood Count 4.6210^6/ul Hemoglobin 13.5g/dl Hematocrit 39.3% Mean Corpuscular Volume 85.1fl Mean Corpuscular Hemoglobin 29.2pg Mean Corpuscular Hemoglobin Concent 34.4g/dl Red Cell Distribution Width 13.2% Platelet Count 89498^3/UL Mean Platelet Volume 10.2fl Neutrophils % 54.3% Lymphocytes % 36.3% Monocytes % 7.8% Eosinophils % 1.1% Basophils % 0.2% Nucleated Red Blood Cells % 0.0/100WBC Neutrophils # 3.510^3/ul Lymphocytes # 2.410^3/ul Monocytes # 0.510^3/ul Eosinophils # 0.110^3/ul Basophils # 0.010^3/ul Nucleated Red Blood Cells # 0.010^3/ul Prothrombin Time 12.4Sec Prothrombin Time Ratio 1.0 INR International Normalized Ratio 0.92 Activated Partial Thromboplast Time 28.6Sec Sodium Level 142mmol/L Potassium Level 4.3mmol/L Chloride Level 103mmol/L Carbon Dioxide Level 28mmol/L Anion Gap 15 Blood Urea Nitrogen 15mg/dl Creatinine 1.02mg/dl Glucose Level 90mg/dl Calcium Level 8.9mg/dl Beta HCG, Quantitative < 2.4mIU/ml Urine Color YELLOW Urine Clarity CLEAR Urine pH 5.0 Urine Specific [place] 1.027 Urine Ketones NEGATIVEmg/dL Urine Nitrite NEGATIVEmg/dL Urine Bilirubin NEGATIVEmg/dL Urine Urobilinogen 1+mg/dL Urine Leukocyte Esterase NEGATIVELeu/ul Urine Microscopic RBC 125/HPF Urine Microscopic WBC 0/HPF Urine Squamous Epithelial Cells FEW/HPF Urine Bacteria FEW/HPF Urine Mucus FEW/HPF Urine Hemoglobin 3+mg/dL Urine Glucose NEGATIVEmg/dL Urine Total Protein NEGATIVEmg/dl Current Medications Medications (Trade) Dose Ordered Sig/Angela Route PRN Reason Start Time Stop Time Status Last Admin Dose Admin Sodium Chloride 1,000 ml @ 1,000 mls/hr Q1H ONCE IV 07/26/17 20:00 07/26/17 20:59 DC 07/26/17 20:48 Lactated Ringer's 1,000 ml @ 125 mls/hr Q8H IV 07/26/17 22:43 Cefazolin Sodium/ Dextrose (Ancef 2 Gm/50 ml (Pmx)) 50 ml @ 100 mls/hr PRE-OP ONCE IVPB 07/26/17 23:00 07/26/17 23:44 DC Procedures/MDM The case was reviewed and discussed with Dr. Zamorano, DIRECT OF REAL ESTATE on-call, who agrees with the plan of care including labs, treatment, and requests repeat US imaging. DIAGNOSTIC TESTS AND INTERPRETATION: PROCEDURE: OB Ultrasound. CLINICAL INDICATION: Vaginal bleeding. TECHNIQUE: Ultrasound of the pelvis was performed with transabdominal and transvaginal sonography in the axial and sagittal planes. COMPARISON: Pelvic ultrasound dated 07/25/2017. FINDINGS: There is no intrauterine gestational sac. The uterus measures 10.0 x 4.7 x 6.5 cm. There is no uterine mass. Endometrial thickness is 8.5 mm. The right ovary measures 3.0 x 2.0 x 2.7 cm. There is a mass which is probably arising from the right ovary measuring 2.8 x 2.3 x 2.5 cm. The mass remains associated with the ovary during application of pressure and release of pressure (sliding test). The left ovary appears normal measuring 3.2 x 1.3 x 2.2 cm. Color Doppler and pulsed Doppler sonography demonstrate normal flow to the ovaries. There is no other pelvic mass or free fluid. IMPRESSION: 1. No intrauterine gestational sac. If the patient has a positive test, ectopic gestation cannot be excluded. 2. Mass probably arising from the right ovary measuring 2.8 x 2.3 x 2.5 cm. This appears similar to the prior study dated 07/25/2017. Follow-up ultrasound advised. 3. Otherwise unremarkable study. .Jomar Rich MD, MD Date Time Electronically viewed and signed by .Jomar Rich MD, MD on 07/26/2017 20:55 After patient's ultrasound reading and laboratory tests had resulted, discussed patient case again with Dr. Zamorano, who reviewed the films of the patient's US. She then evaluated the patient bedside, and recommends admission for further evaluation of the adnexal mass, and to rule out ectopic . MEDICAL DECISION MAKING: This is a 36-year-old recently female presenting to the Emergency Department complaining of vaginal bleeding and right -sided pelvic pain. Patient's last menstrual period was 05/15/2017. On 06/21/2017 she was noted to have a beta hCG of 858. Ultrasound imaging performed yesterday revealed a 2.8 cm heterogeneous mass in the right adnexa adjacent to the right ovary without internal color flow. Given concern regarding possible tubal ectopic patient was advised to return to the Emergency Department for further evaluation. Differential diagnosis includes, but is not limited to, ectopic , cervicitis, fibroids, molar , implantation bleeding, heterotopic , septic , missed , incomplete , inevitable , threatened , complete , coagulopathy, fibroids, adenomyosis, endometriosis, neoplasia, vaginitis, hemorrhagic cyst, corpus luteum cyst, PID, vaginal trauma, dysfunctional uterine bleeding. Beta hCG quantitative today and yesterday were < 2.4. Hemoglobin and hematocrit are stable, no severe anemia. Rh (+), no indication for RhoGAM. Repeat ultrasound imaging today revealed no intrauterine gestational sac. Additionally, mass probably arising from the right ovary measuring 2.8 x 2.3 x 2.5 cm was noted. Patient has no free fluid in the pelvis. She is hemodynamically stable, with no evidence of hemoperitoneum. Given recent positive status and findings on ultrasound, discussed patient case with DIRECT OF REAL ESTATE specialist on-call, Dr. Zamorano, who recommends that the patient be admitted for further evaluation and to rule out ectopic . At this time, the patient will be admitted for further evaluation and management. Departure Diagnosis: Primary Impression: Adnexal mass Additional Impression: Vaginal bleeding Condition: Stable KAMAR GODWIN PA-C Jul 26, 2017 21:51
--- NOTE | 2017-07-26 22:42 | CONS ---
Date/Time of Note Date/Time of Note DATE: 07/26/17 TIME: 22:27 Assessment/Plan Assessment/Plan Chief Complaint/Hosp Course , 36-year-old with right-sided lower abdominal pain and vaginal bleeding with ultrasound finding consistent with 1/2 cm right complex adnexal complexes structure cannot rule out ectopic . Serum hCG currently negative. Patient never had a diagnosis of IUP Ultrasound findings suspicious. No evidence of hemoperitoneum. Patient is hemodynamically stable. No free fluid in the pelvis. Abdominal exam unremarkable. Findings discussed with the patient Cannot rule out early SAB, versus right unruptured ectopic HCG undetectable. 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 Recommended the patient about D&C to confirm about early SAB versus ectopic Can send the uterine contents for Frozen section , if Uterine contents shows presents of the light that confirms early SAB otherwise there is a chance and possibility of ectopic that cannot be ruled out versus a complex right ovarian cyst. This has been discussed with the patient. At this time patient will be admitted to the hospital with plan above. She understands possibility of conversion to laparoscopy procedure if there is no evidence of chorionic villi obtained Patient will be admitted to [facility] Keep the patient n.p.o. We will booked for tomorrow a.m. Problems: Consultation Date/Type/Reason Admit Date/Time 07/26/2017 Type of Consultation: APPLICATIONS DEVELOPMENT ANALYST Reason for Consultation APPLICATIONS DEVELOPMENT ANALYST evaluation for r/o Ectopic Hx of Present Illness 36 years old with amenorrhea for 10 weeks and 2 days presented to ED after was called to return due to concern for Ectopic . LMP: April Patient was seen yesterday when she presented to emergency room with complaint of increased right-sided lower abdominal pain and vaginal bleeding. She had a pelvic ultrasound that showed twin half centimeter right adnexal complex cystic structure cannot rule out ectopic . Her serum hCG essentially is negative. She was seen in June 21, 2017 about a month ago in the emergency room due to vaginal bleeding and right-sided pelvic pain. She had a pelvic ultrasound that did not show any evidence of IUP. HCG at that time was 800. Patient reports starting having right-sided lower abdominal pelvic pain and vaginal bleeding since 4 days ago that increased yesterday. Reports always has right-sided lower pelvic pain with menstruation but this time right side pelvic pain was different. Patient denies any history of abdominal surgery, pelvic surgery, STD, PID. She is monogamous and sexually active with one partner. She is . She is a status post 4 and all pregnancies with the same partner. When I arrived to the patient's bedside patient denies having any pain. Denies any nausea vomiting, fever chills, dizziness, lightheadedness or any other symptoms. Subjective hx not possible: other (Alert and oriented and historial) Constitutional: no complaints Eyes: no complaints ENT: no complaints Respiratory: no complaints Cardiovascular: no complaints Gastrointestinal: no complaints Genitourinary: bleeding Musculoskeletal: no complaints Skin: no complaints Neurologic: no complaints Endocrine: no complaints Lymphatic: no complaints Psychological: no complaints Immunologic: no complaints Past Medical History Medical History: no pertinent history Past Surgical History Past medical history none Past surgical history: None Allergy history: NKDA Medication: None Social history: Patient denies of smoking, drinking alcohol or using any drugs She is and is in a stable relationship with one partner. 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 Denies any history of abnormal Pap smear Had a history of uterine cyst 17 years ago after her last delivery that was removed and cauterized in [facility] reports by patient Past Surgical Hx: no surgical history Social History Alcohol Use: none Smoking Status: Current every day smoker Drug Use: none Exam/Review of Systems Vital Signs Vitals Vital Signs Date Time Temp Pulse Resp B/P Pulse Ox O2 Delivery O2 Flow Rate FiO2 07/26/17 16:52 99.4 74 20 137/8 99 Exam Constitutional: alert, oriented, well developed Psych: nl mood/affect, no complaints Head: atraumatic, normocephalic Eyes: EOMI, nl conjunctiva, nl lids ENMT: nl external ears & nose, nl lips & teeth Neck: non-tender, supple Respiratory: clear to auscultation, normal air movement Cardiovascular: regular rate and rhythm Gastrointestinal: nl liver, spleen, soft, tender (Slight tenderness in the right lower abdomen. No rebound tenderness, no guarding, no rigidity, no evidence of acute abdomen. No pelvic mass or abdominal pannus palpable) Genitourinary - Female: nl external genitalia, other (Scant amount of dark blood in the vault. Cervix appears normal and without any lesion. Cervix appears closed and long.) Musculoskeletal: nl extremities to inspection, nl gait and stance Extremities: normal pulses Neurological: PROCESS STEWARD II-XII intact, nl mental status, nl speech, nl strength Skin: nl turgor Results Result Diagram: 07/26/17199907/26/171999 Results 24 hrs Laboratory Tests Test 07/26/17 20:00 07/26/17 20:05 White Blood Count 6.5 Red Blood Count 4.62 Hemoglobin 13.5 Hematocrit 39.3 Mean Corpuscular Volume 85.1 Mean Corpuscular Hemoglobin 29.2 Mean Corpuscular Hemoglobin Concent 34.4 Red Cell Distribution Width 13.2 Platelet Count 218 Mean Platelet Volume 10.2 Neutrophils % 54.3 Lymphocytes % 36.3 Monocytes % 7.8 Eosinophils % 1.1 Basophils % 0.2 Nucleated Red Blood Cells % 0.0 Neutrophils # 3.5 Lymphocytes # 2.4 Monocytes # 0.5 Eosinophils # 0.1 Basophils # 0.0 Nucleated Red Blood Cells # 0.0 Prothrombin Time 12.4 Prothrombin Time Ratio 1.0 INR International Normalized Ratio 0.92 Activated Partial Thromboplast Time 28.6 Sodium Level 142 Potassium Level 4.3 Chloride Level 103 Carbon Dioxide Level 28 Anion Gap 15 Blood Urea Nitrogen 15 Creatinine 1.02 H Glucose Level 90 Calcium Level 8.9 Beta HCG, Quantitative < 2.4 Urine Color YELLOW Urine Clarity CLEAR Urine pH 5.0 Urine Specific [place] 1.027 Urine Ketones NEGATIVE Urine Nitrite NEGATIVE Urine Bilirubin NEGATIVE Urine Urobilinogen 1+ H Urine Leukocyte Esterase NEGATIVE Urine Microscopic RBC 125 H Urine Microscopic WBC 0 Urine Squamous Epithelial Cells FEW Urine Bacteria FEW A Urine Mucus FEW A Urine Hemoglobin 3+ H Urine Glucose NEGATIVE Urine Total Protein NEGATIVE Imaging Free Text/Dictation PROCEDURE: OB Ultrasound. CLINICAL INDICATION: Positive test. Vaginal bleeding. TECHNIQUE: Ultrasound of the pelvis was performed with transabdominal and transvaginal sonography in the axial and sagittal planes. COMPARISON: Pelvic ultrasound dated 07/25/2017. FINDINGS: There is no intrauterine gestational sac. The uterus measures 10.0 x 4.7 x 6.5 cm. There is no uterine mass. Endometrial thickness is 8.5 mm. The right ovary measures 3.0 x 2.0 x 2.7 cm. There is a mass which is probably arising from the right ovary measuring 2.8 x 2.3 x 2.5 cm. The mass remains associated with the ovary during application of pressure and release of pressure (sliding test). The left ovary appears normal measuring 3.2 x 1.3 x 2.2 cm. Color Doppler and pulsed Doppler sonography demonstrate normal flow to the ovaries. There is no other pelvic mass or free fluid. IMPRESSION: 1. No intrauterine gestational sac. If the patient has a positive test, ectopic gestation cannot be excluded. 2. Mass probably arising from the right ovary measuring 2.8 x 2.3 x 2.5 cm. This appears similar to the prior study dated 07/25/2017. Follow-up ultrasound advised. 3. Otherwise unremarkable study. EDENILSON TRAN MD Jul 26, 2017 22:41
[2017-07-26] MEDS ORDERED: CEFAZOLIN 2 GM/50 ML (PMX) 50 ML IVPB ONE (23:00)
[2017-07-27 00:01] VITALS: TEMP 98
[2017-07-27 00:44] VITALS: BP 128/83; PULSE 61; RESP 18
[2017-07-27 01:28] VITALS: Ht 162.6 cm; Wt 71.8 kg
[2017-07-27] MEDS: LACTATED RINGER'S 1,000 ML IV SCH ×3 (01:35→09:35)
[2017-07-27 07:51] VITALS: BP 128/77; RESP 18
--- NOTE | 2017-07-27 10:07 | DS ---
Date/Time of Note Date/Time of Note DATE: 07/27/17 TIME: 09:53 Discharge Summary Admission/Discharge Info Admit Date/Time July 27, 2070 Discharge summary This patient is a 36 years old 4 para 4 living 3 who came to the hospital complaining of lower abdominal pain and slight vaginal bleeding, with beta-hCG level of 2.5. No other evidence of intra-uterine or ectopic . She was admitted in the hospital yesterday for possible surgical intervention. I examined the patient today. On examination she is comfortable, no complaint of any abdominal pain or discomfort. Her ear nose throat appears to be normal abdomen is soft no abdominal tenderness no rebound no CVA tenderness extremities are normal. On pelvic examination vulva and vagina are normal, no evidence of vaginal bleeding, no cervical tenderness ,no enlarged uterus or adnexal mass. I called our radiologist Dr. Rich who did the ultrasound study and he agreed due to lack of any evidence of a true ectopic on ultrasound study and the beta HCG of 2.5 to discharge her home and to see her in follow-up in 4 or 5 days and to repeat the ultrasound and pelvic examination if necessary . If any further suspicion she might undergo a D&C and diagnostic laparoscopy. But at this stage the chance of ectopic is very low. I discussed the case with the patient regarding the possible D&C and laparoscopy versus waiting a few more days. Laboratory Tests Test 07/26/17 20:00 07/26/17 20:05 White Blood Count 6.510^3/ul Red Blood Count 4.6210^6/ul Hemoglobin 13.5g/dl Hematocrit 39.3% Mean Corpuscular Volume 85.1fl Mean Corpuscular Hemoglobin 29.2pg Mean Corpuscular Hemoglobin Concent 34.4g/dl Red Cell Distribution Width 13.2% Platelet Count 82731^3/UL Mean Platelet Volume 10.2fl Neutrophils % 54.3% Lymphocytes % 36.3% Monocytes % 7.8% Eosinophils % 1.1% Basophils % 0.2% Nucleated Red Blood Cells % 0.0/100WBC Neutrophils # 3.510^3/ul Lymphocytes # 2.410^3/ul Monocytes # 0.510^3/ul Eosinophils # 0.110^3/ul Basophils # 0.010^3/ul Nucleated Red Blood Cells # 0.010^3/ul Prothrombin Time 12.4Sec Prothrombin Time Ratio 1.0 INR International Normalized Ratio 0.92 Activated Partial Thromboplast Time 28.6Sec Sodium Level 142mmol/L Potassium Level 4.3mmol/L Chloride Level 103mmol/L Carbon Dioxide Level 28mmol/L Anion Gap 15 Blood Urea Nitrogen 15mg/dl Creatinine 1.02mg/dl Glucose Level 90mg/dl Calcium Level 8.9mg/dl Beta HCG, Quantitative < 2.4mIU/ml Urine Color YELLOW Urine Clarity CLEAR Urine pH 5.0 Urine Specific [place] 1.027 Urine Ketones NEGATIVEmg/dL Urine Nitrite NEGATIVEmg/dL Urine Bilirubin NEGATIVEmg/dL Urine Urobilinogen 1+mg/dL Urine Leukocyte Esterase NEGATIVELeu/ul Urine Microscopic RBC 125/HPF Urine Microscopic WBC 0/HPF Urine Squamous Epithelial Cells FEW/HPF Urine Bacteria FEW/HPF Urine Mucus FEW/HPF Urine Hemoglobin 3+mg/dL Urine Glucose NEGATIVEmg/dL Urine Total Protein NEGATIVEmg/dl Current Medications Medications (Trade) Dose Ordered Sig/Angela Route PRN Reason Start Time Stop Time Status Last Admin Dose Admin Sodium Chloride 1,000 ml @ 1,000 mls/hr Q1H ONCE IV 07/26/17 20:00 07/26/17 20:59 DC 07/26/17 20:48 Lactated Ringer's 1,000 ml @ 125 mls/hr Q8H IV 07/26/17 22:43 07/27/17 09:35 Cefazolin Sodium/ Dextrose (Ancef 2 Gm/50 ml (Pmx)) 50 ml @ 100 mls/hr PRE-OP ONCE IVPB 07/26/17 23:00 07/26/17 23:44 DC Influenza Virus Vaccine (Fluzone) 0.5 ml ONCE ONCE IM* 07/29/17 09:00 07/29/17 09:01 She basically does not want to have any surgery , however I recommended her to come back in two to three days for another ultrasound study and evaluation ,if any further suspicious will go ahead with diagnostic D&C and laparoscopy. Discharge Date/Time Patient Condition: Stable Hospital Course Her case was discussed with the radiologist Dr. Rich decision was made to discharge her home and to do a early follow-up in 3-4 days or to return if any pain or vaginal bleeding, Home Meds Discontinued Reported Medications Vits W-Ca,Fe,Fa(<1MG) () 1 Tab Tablet, 1 01/21/12 Vits W-Ca,Fe,Fa(<1MG) () 1 Tab Tablet, 1 TAB PO DAILY 06/20/11 Discontinued Scripts Ibuprofen* (Motrin*) 600 Mg Tab, 600 MG PO Q6, #30 TAB Prov:GRAZYNA SALVADOR 07/25/17 Hydrocodone/Acetaminophen ([place] 5-325 Tablet) 1 Each Tablet, 1 TAB PO Q6H Y for PAIN, #7 TAB Prov:CHRISTIANA ROCKODY 06/22/17 Prenat Vit Comb.10/Iron/FA/Dha (Vitafol-Ob+Dha Combo Pack) 1 Each Combo..pkg, 1 EACH PO DAILY, #30 Prov:ANGELICA SOTOMAYOR PA-C 06/16/17 Acetaminophen* (Tylenol*) 325 Mg Tablet, 2 TAB PO Q6 Y for PAIN AND OR ELEVATED TEMP, #20 TAB Prov:ANGELICA SOTOMAYOR PA-C 06/16/17 Cyclobenzaprine Hcl* (Cyclobenzaprine Hcl*) 10 Mg Tablet, 10 MG PO TID, #30 TAB Prov:LISSETT REYNOLDS PA-C 07/19/16 Ibuprofen* (Motrin*) 600 Mg Tab, 600 MG PO Q6H Y for PAIN AND OR ELEVATED TEMP, #30 TAB Prov:LISSETT REYNOLDS PA-C 07/19/16 Primary Care Provider Inderjit Sue MD Pending Labs Laboratory Tests Test 07/26/17 20:00 07/26/17 20:05 White Blood Count 6.510^3/ul (4.8-10.8) Red Blood Count 4.6210^6/ul (4.20-5.40) Hemoglobin 13.5g/dl (12.0-16.0) Hematocrit 39.3% (37.0-47.0) Mean Corpuscular Volume 85.1fl (82.0-101.0) Mean Corpuscular Hemoglobin 29.2pg (29.0-33.0) Mean Corpuscular Hemoglobin Concent 34.4g/dl (32.0-37.0) Red Cell Distribution Width 13.2% (11.5-14.5) Platelet Count 48276^3/UL (140-415) Mean Platelet Volume 10.2fl (7.4-10.4) Neutrophils % 54.3% (39.0-77.0) Lymphocytes % 36.3% (15.0-51.0) Monocytes % 7.8% (0.0-11.0) Eosinophils % 1.1% (0.0-7.0) Basophils % 0.2% (0.0-2.0) Nucleated Red Blood Cells % 0.0/100WBC (0.0-0.0) Neutrophils # 3.510^3/ul (1.6-7.5) Lymphocytes # 2.410^3/ul (0.8-2.9) Monocytes # 0.510^3/ul (0.3-0.9) Eosinophils # 0.110^3/ul (0.0-0.5) Basophils # 0.010^3/ul (0.0-0.1) Nucleated Red Blood Cells # 0.010^3/ul (0.0-0.0) Prothrombin Time 12.4Sec (12.2-14.2) Prothrombin Time Ratio 1.0 INR International Normalized Ratio 0.92 Activated Partial Thromboplast Time 28.6Sec (25.0-35.0) Sodium Level 142mmol/L (135-144) Potassium Level 4.3mmol/L (3.5-5.1) Chloride Level 103mmol/L (97-110) Carbon Dioxide Level 28mmol/L (21-31) Anion Gap 15 (8-16) Blood Urea Nitrogen 15mg/dl (7-20) Creatinine 1.02mg/dl (0.44-1.00) Glucose Level 90mg/dl (70-220) Calcium Level 8.9mg/dl (8.4-10.2) Beta HCG, Quantitative < 2.4mIU/ml Urine Color YELLOW (YELLOW) Urine Clarity CLEAR (CLEAR) Urine pH 5.0 (5.0-9.0) Urine Specific [place] 1.027 (1.003-1.030) Urine Ketones NEGATIVEmg/dL (NEGATIVE) Urine Nitrite NEGATIVEmg/dL (NEGATIVE) Urine Bilirubin NEGATIVEmg/dL (NEGATIVE) Urine Urobilinogen 1+mg/dL (NEGATIVE) Urine Leukocyte Esterase NEGATIVELeu/ul (NEGATIVE) Urine Microscopic RBC 125/HPF (0-5) Urine Microscopic WBC 0/HPF (0-5) Urine Squamous Epithelial Cells FEW/HPF (FEW) Urine Bacteria FEW/HPF (NONE SEEN) Urine Mucus FEW/HPF (NONE SEEN) Urine Hemoglobin 3+mg/dL (NEGATIVE) Urine Glucose NEGATIVEmg/dL (NEGATIVE) Urine Total Protein NEGATIVEmg/dl (NEGATIVE) BELINDA GUZMAN MD Jul 27, 2017 10:03
[2017-07-27 14:52] VITALS: BP 132/86; RESP 18
[2017-07-29] MEDS ORDERED: INFLUENZA VIRUS VACCINE 0.5 ML (DISPENSING) IM* ONE (09:00)
== END 2017-07-27 19:00 | disposition home or self-care (01) | DRG 761 ==
LOC: FTE 16:45 → MS1 22:02
PROVIDERS: ADMIT Obstetrics & Gynecology Obstetrics; ATTEND Obstetrics & Gynecology Obstetrics
DX: N93.9 Abnormal uterine and vaginal bleeding, unspecified (principal); R19.00 Intra-abdominal and pelvic swelling, mass and lump, unspecified site
CPT/HCPCS: 36415; 76801; 76817; 80048; 81001; 84702; 85025; 85610; 85730; 86850; 86900; 86901; J0690; J7030; J7120

== ENCOUNTER 2017-08-05 15:19 | Emergency (ER) | payer OTHER ==
[~2017-08-05] VITALS: Ht 165.1 cm; Wt 70.4 kg
[2017-08-05 15:21] VITALS: Ht 165.1 cm; Wt 70.4 kg
[2017-08-05] MEDS ORDERED: KETOROLAC 15 MG INJ IV STA (15:40)
[2017-08-05 15:56] LABS: URINE BLOOD (Dip) POC 1+ (NEGATIVE)
--- NOTE | 2017-08-05 16:02 | ERD ---
ER Documentation Chief Complaint Chief Complaint Complains of right sided pelvic pain x 1 week HPI This is a 36-year-old female who presents to the emergency room for reevaluation and persistent right pelvic pain. Patient describes dated 10 cramping right pelvic pain, this is been present for approximately 1-2 weeks. She was recently seen and admitted to [facility] for possible rule out ectopic based on right adnexal mass seen on ultrasound. However, her hCG was less than 2.5. The patient was discharged and followed up with her primary care physician who recommended that she followed up with Dr. Sung today but there was no one in his office and she presents to the emergency room. She still describes generalized malaise and mild headache that is gradual in onset and frontal. No vaginal discharge, she did have a menstrual period approximately 1 week ago that was normal for her. She denies any lightheadedness. ROS All systems reviewed and are negative except as per history of present illness. Medications Home Meds No Active Prescriptions or Reported Meds Allergies Allergies: Coded Allergies: No Known Drug Allergies (Verified Allergy, Mild, 07/25/17) PMhx/Soc Medical and Surgical Hx: pt denies Medical Hx History of Surgery: No Anesthesia Reaction: No Hx Neurological Disorder: No Hx Respiratory Disorders: No Hx Cardiac Disorders: No Hx Psychiatric Problems: No Hx Miscellaneous Medical Probl: No Hx Alcohol Use: No Hx Substance Use: No Hx Tobacco Use: No FmHx Family History: No diabetes Physical Exam Vitals Vital Signs Date Time Temp Pulse Resp B/P Pulse Ox O2 Delivery O2 Flow Rate FiO2 08/05/17 15:21 98.4 90 20 120/84 96 Physical Exam General: Well developed, well nourished, no acute distress Head: Normocephalic, atraumatic. Eyes: Pupils equally reactive, EOM intact ENT: Moist mucous membranes Neck: Supple, no lymphadenopathy Respiratory: Lungs clear bilaterally, no distress Cardiovascular: RRR, no murmurs, rubs, or gallops Abdominal: Soft, mild tenderness to the right pelvic region below McBurney's point, no peritonitis : Deferred MSK: No edema, no unilateral swelling, 5/5 strength Neurologic: Alert and oriented, moving all extremities, normal speech, no focal weakness, no cerebellar signs Skin: No rash Psych: Normal mood Result Diagram: 08/05/17 1559 08/05/17 1559 Results 24 hrs Laboratory Tests Test 08/05/17 15:53 08/05/17 15:59 Bedside Urine pH (LAB) 5.5 Bedside Urine Protein (LAB) 1+ Bedside Urine Glucose (UA) Negative Bedside Urine Ketones (LAB) Negative Bedside Urine Blood 1+ Bedside Urine Nitrite (LAB) Negative Bedside Urine Leukocyte Esterase (L Negative White Blood Count 7.010^3/ul Red Blood Count 4.7810^6/ul Hemoglobin 14.0g/dl Hematocrit 39.6% Mean Corpuscular Volume 82.8fl Mean Corpuscular Hemoglobin 29.3pg Mean Corpuscular Hemoglobin Concent 35.4g/dl Red Cell Distribution Width 12.6% Platelet Count 12677^3/UL Mean Platelet Volume 9.9fl Neutrophils % 67.3% Lymphocytes % 25.5% Monocytes % 6.3% Eosinophils % 0.3% Basophils % 0.3% Nucleated Red Blood Cells % 0.0/100WBC Neutrophils # 4.710^3/ul Lymphocytes # 1.810^3/ul Monocytes # 0.410^3/ul Eosinophils # 0.010^3/ul Basophils # 0.010^3/ul Nucleated Red Blood Cells # 0.010^3/ul Sodium Level 141mmol/L Potassium Level 4.1mmol/L Chloride Level 103mmol/L Carbon Dioxide Level 27mmol/L Anion Gap 15 Blood Urea Nitrogen 14mg/dl Creatinine 0.89mg/dl Glucose Level 86mg/dl Calcium Level 9.0mg/dl Beta HCG, Quantitative < 2.4mIU/ml Current Medications Medications (Trade) Dose Ordered Sig/Angela Route PRN Reason Start Time Stop Time Status Last Admin Dose Admin Ketorolac Tromethamine (Toradol) 15 mg ONCE STAT IV 08/05/17 15:40 08/05/17 15:41 DC 08/05/17 16:36 Procedures/MDM EKG, MONITORS, & DIAGNOSTIC IMAGING: Pelvic ultrasound: IMPRESSION: 1. No intrauterine gestational sac. If the patient has a positive test, ectopic gestation cannot be excluded. 2. Heterogeneous mass adjacent to or arising from the right ovary measuring 2.7 x 2.6 x 2.3 cm. This appears similar to the prior study dated 07/26/2017. 3. Otherwise unremarkable study. RPTAT: QQ LAB INTERPRETATION: No leukocytosis, no anemia, negative hCG MEDICAL DECISION MAKING: The patient presents for persistent right-sided pelvic pain. This is not consistent with PID or TOA. Reviewing the patient's electronic medical records , less than 10 days ago she was admitted to [facility] for evaluation of right adnexal mass that was 2.5 cm in size. The patient had a negative hCG and she was discharged. The patient's adnexal mass could be the etiology of these symptoms. Concerning for possible malignancy, atypical ovarian cyst. Lower clinical concern for ectopic but the patient needs serial hCG and repeat ultrasound. She is hemodynamically stable. I will speak to Dr. Sung or Dr. Villegas regarding this case. ER COURSE: The patient was given pain medication. Her laboratory testing is unrevealing. HCG is negative. Repeat ultrasound is unchanged. Speaking to the architectural technician this is possibly a hemorrhagic cyst. However, it is unchanged from prior study. I was able to speak to the patient's [facility], Dr. Villegas. We reviewed the case. He feels that the patient could be appropriately managed as an outpatient with biopsy or further monitoring on a nonemergent basis. He is agreeable with discharge at this point. I kept the patient and/or family informed of laboratory and diagnostic imaging results throughout the emergency room course. DISPOSITION PLAN: We discussed follow up with the patient's primary care doctor within 24 to 48 hours as needed. We also discussed return to the emergency room for worsening symptoms or worsening condition. Outpatient referral: [facility] Discharge Medications: Motrin Departure Diagnosis: Primary Impression: Ovarian mass, right Condition: Stable REX DURANT MD Aug 05, 2017 16:02
[2017-08-05 16:06] LABS: BASOPHILS % 0.3 % (0.0-2.0); EOSINOPHILS % 0.3 % (0.0-7.0); HEMATOCRIT 39.6 % (37.0-47.0); LYMPHOCYTES # 1.8 10^3/ul (0.8-2.9); LYMPHOCYTES % 25.5 % (15.0-51.0); MEAN CORPUSCULAR HEMOGLOBIN 29.3 pg (29.0-33.0); MEAN CORPUSCULAR HGB CONC 35.4 g/dl (32.0-37.0); MEAN CORPUSCULAR VOLUME 82.8 fl (82.0-101.0); MEAN PLATELET VOLUME 9.9 fl (7.4-10.4); MONOCYTE # 0.4 10^3/ul (0.3-0.9); MONOCYTES % 6.3 % (0.0-11.0); NEUTROPHIL # 4.7 10^3/ul (1.6-7.5); NEUTROPHILS % 67.3 % (39.0-77.0); PLATELET COUNT 223 10^3/UL (140-415); RED BLOOD COUNT 4.78 10^6/ul (4.20-5.40); RED CELL DISTRIBUTION WIDTH 12.6 % (11.5-14.5)
[2017-08-05 16:27] LABS: CREATININE 0.89 mg/dl (0.44-1.00); POTASSIUM 4.1 mmol/L (3.5-5.1)
--- NOTE | 2017-08-05 17:04 | RADRPT ---
PROCEDURE: OB Ultrasound. CLINICAL INDICATION: Positive test. Vaginal bleeding. TECHNIQUE: Ultrasound of the pelvis was performed with transabdominal and transvaginal sonography in the axial and sagittal planes. COMPARISON: 07/26/2017. FINDINGS: There is no intrauterine gestational sac. The uterus measures 9.5 x 5.1 x 6.5 cm. Endometrial thickn ess is 15.9 mm. There is no uterine mass. The right ovary appears normal in size measuring 3.3 x 2.5 x 2.3 cm. The left ovary appears normal measuring 2.8 x 1.5 x 1.9 cm. Color Doppler and pulsed Doppler sonography demonstrate normal flow to the ovaries. There is a heterogeneous mass adjacent to or arising from the right ovary measuring 2.7 x 2.6 x 2.3 cm. There is no other pelvic mass. There is no free fluid. IMPRESSION: 1. No intrauterine gestational sac. If the patient has a positive test, ectopic gestation cannot be excluded. 2. Heterogeneous mass adjacent to or arising from the right ovary measuring 2.7 x 2.6 x 2.3 cm. Thi s appears similar to the prior study dated 07/26/2017. 3. Otherwise unremarkable study. RPTAT: QQ .Jomar Rihc MD, MD Date Time Electronically viewed and signed by .Jomar Rich MD, on 08/05/2017 17:04 .R/
[2017-08-05] MEDS ORDERED: IBUP800T25 PO (17:21)
== END 2017-08-05 17:40 | disposition home or self-care (01) ==
LOC: FTE 15:19
DX: N83.201 Unspecified ovarian cyst, right side (principal)
CPT/HCPCS: 76801; 76817; 80048; 81003; 84702; 85025; 86900; 86901; J1885; Z7502